=== PATIENT | female | born 1940 | race Caucasian/White ===

== ENCOUNTER 2016-12-05 08:27 | Outpatient (CLI) | payer MEDICARE, OTHER ==
[2015-12-19 10:24] VITALS: BP 122/58
== END 2016-12-05 08:37 ==
LOC: POD 08:27
PROVIDERS: ATTEND Podiatrist Public Medicine
DX: E11.9 Type 2 diabetes mellitus without complications (principal); B35.1 Tinea unguium; L60.0 Ingrowing nail; M79.674 Pain in right toe(s); M79.675 Pain in left toe(s)
CPT/HCPCS: 11721; G0463

== ENCOUNTER 2017-02-20 09:51 | Outpatient (CLI) | payer MEDICARE, OTHER ==
[2015-12-19 10:24] VITALS: BP 122/58
== END 2017-02-20 09:52 ==
LOC: POD 09:51
PROVIDERS: ATTEND Podiatrist Public Medicine
DX: B35.1 Tinea unguium (principal); L60.0 Ingrowing nail; M79.674 Pain in right toe(s); M79.675 Pain in left toe(s)

== ENCOUNTER 2017-08-07 08:19 | Outpatient (CLI) | payer MEDICARE, OTHER ==
[2015-12-19 10:24] VITALS: BP 122/58
== END 2017-08-07 08:20 ==
LOC: POD 08:19
PROVIDERS: ATTEND Podiatrist Public Medicine
DX: B35.1 Tinea unguium (principal); M77.41 Metatarsalgia, right foot; M77.42 Metatarsalgia, left foot; L60.0 Ingrowing nail; M79.675 Pain in left toe(s); M79.674 Pain in right toe(s)
CPT/HCPCS: 11721; G0463

== ENCOUNTER 2017-12-04 08:44 | Outpatient (CLI) | payer MEDICARE, OTHER ==
[2015-12-19 10:24] VITALS: BP 122/58
== END 2017-12-04 08:45 ==
LOC: POD 08:44
PROVIDERS: ATTEND Podiatrist Public Medicine
DX: B35.1 Tinea unguium (principal); L60.0 Ingrowing nail; M77.41 Metatarsalgia, right foot; M77.42 Metatarsalgia, left foot; M79.674 Pain in right toe(s); M79.675 Pain in left toe(s)
CPT/HCPCS: 11721; G0463

== ENCOUNTER 2018-03-05 08:31 | Outpatient (CLI) | payer MEDICARE, OTHER ==
[2015-12-19 10:24] VITALS: BP 122/58
== END 2018-03-05 08:32 ==
LOC: POD 08:31
PROVIDERS: ATTEND Podiatrist Public Medicine
DX: B35.1 Tinea unguium (principal); M77.41 Metatarsalgia, right foot; M77.42 Metatarsalgia, left foot; L60.0 Ingrowing nail; M79.675 Pain in left toe(s); M79.674 Pain in right toe(s)
CPT/HCPCS: 11721; G0463

== ENCOUNTER 2018-06-04 08:33 | Outpatient (CLI) | payer MEDICARE, OTHER ==
[2015-12-19 10:24] VITALS: BP 122/58
== END 2018-06-04 08:35 ==
LOC: POD 08:33
PROVIDERS: ATTEND Podiatrist Public Medicine
DX: B35.1 Tinea unguium (principal); L60.0 Ingrowing nail; M77.41 Metatarsalgia, right foot; M77.42 Metatarsalgia, left foot; M79.674 Pain in right toe(s); M79.675 Pain in left toe(s)
CPT/HCPCS: 11721; G0463